=== PATIENT | male | born 1975 | race Caucasian/White ===

== ENCOUNTER 2024-11-02 17:40 | Emergency (ER) | payer OTHER, BC ==
[~2024-11-02] VITALS: Ht 182.9 cm; Wt 83.9 kg
[2024-11-02 18:21] VITALS: BP 123/83; TEMP 98.7; O2SAT 100
== END 2024-11-02 18:23 | disposition home or self-care (01) ==
LOC: ER 17:40
DX: T70.0XXA Otitic barotrauma, initial encounter (principal); V43.62XA Car passenger injured in collision with other type car in traffic accident, initial encounter; Y93.89 Activity, other specified; Y92.488 Other paved roadways as the place of occurrence of the external cause; Y99.8 Other external cause status
CPT/HCPCS: A4606; A4663